=== PATIENT | male | born 1965 | race Caucasian/White ===

== ENCOUNTER → 2021-10-06 | Outpatient (CLI) | payer MEDICAID ==
--- NOTE | 2021-10-06 12:34 | US ---
EXAMINATION TYPE: US kidneys/renal and bladder DATE OF EXAM: 10/06/2021 COMPARISON: NONE CLINICAL HISTORY: I10 ESSENTIAL HYPERTENSION, Z87.448 HX OF HEMATURIA. Microscopic hematuria EXAM MEASUREMENTS: Right Kidney: 11.1 x 5.6 x 6.1 cm Left Kidney: 11.9 x 5.4 x 5.5 cm Right Kidney: Appeared wnl Left Kidney: Appeared wnl Bladder: wnl Bilateral Jets seen: Yes There is no evidence for hydronephrosis at this point in time. No nephrolithiasis is seen. No kyree s are identified. The urinary bladder is anechoic. Bilateral ureteral jets are seen. IMPRESSION: Within normal limits
== END | disposition home or self-care (01) ==
LOC: RADUSWWP 12:02
PROVIDERS: ATTEND Family Medicine
DX: I10 Essential (primary) hypertension (principal); Z87.448 Personal history of other diseases of urinary system
CPT/HCPCS: 76770